=== PATIENT | female | born 1975 | race Caucasian/White ===

== ENCOUNTER 2017-01-08 16:35 | Emergency (ER) | payer MEDICAID ==
--- NOTE | 2017-01-08 16:55 | ER Document Report ---
ED Medical Screen (RME) - General Chief Complaint: Flank Pain Stated Complaint: ABDOMINAL PAIN Notes: 41-year-old female patient reports onset 11 AM of right flank and right upper quadrant abdominal pain. Hurts to move. Recently finished antibiotic for bacterial vaginosis. Brief exam shows very tender to palpate in the right upper quadrant, also just as tender to palpate the right flank muscles. Denies any recent turning, twisting, straining, new exercise class, etc. TRAVEL OUTSIDE OF THE [place] IN LAST 30 DAYS: No - Related Data Allergies/Adverse Reactions: amoxicillin [Amoxicillin] Allergy (Verified 01/08/17 16:47) Sulfa (Sulfonamide Antibiotics) Allergy (Verified 01/08/17 16:47) Past Medical History Pulmonary Medical History: Reports: Hx Bronchitis Renal/ Medical History: Denies: Hx Peritoneal Dialysis Past Surgical History: Reports: Hx Section - x 4, Hx Tubal Ligation Physical Exam - Vital signs Vitals: Temp Pulse Resp BP Pulse Ox 98.7 F 95 16 138/75 H 99 01/08/17 16:39 01/08/17 16:39 01/08/17 16:39 01/08/17 16:39 01/08/17 16:39 Course - Vital Signs Vital signs: Temp Pulse Resp BP Pulse Ox 98.7 F 95 16 138/75 H 99 01/08/17 16:39 01/08/17 16:39 01/08/17 16:39 01/08/17 16:39 01/08/17 16:39 - Laboratory Result Diagrams: 01/08/17 17:00 01/08/17 17:00 Laboratory results interpreted by me: 01/08/17 17:00 Hgb 11.9 L MCV 78 L MCH 25.6 L RDW 15.5 H
[2017-01-08 17:29] LABS: ABSOLUTE EOSINOPHILS # (AUTO) 0.3 10^3/uL (0.0-0.6); ABSOLUTE LYMPHOCYTES (AUTO) 2.8 10^3/uL (0.5-4.7); ABSOLUTE MONOCYTES (AUTO) 0.7 10^3/uL (0.1-1.4); ABSOLUTE NEUT (AUTO) 5.6 10^3/uL (1.7-8.2); BASOPHILS % (AUTO) 0.3 % (0-2); EOSINOPHILS % (AUTO) 2.7 % (0-6); HEMATOCRIT 36.5 % (36.0-47.0); HEMOGLOBIN 11.9 g/dL (12.0-15.5); HGB HCT DIFFERENCE -0.8; LYMPHOCYTES % (AUTO) 29.8 % (13-45); MEAN CORPUSCULAR HEMOGLOBIN 25.6 pg (27.0-33.4); MEAN CORPUSCULAR HGB CONC 32.6 g/dL (32.0-36.0); MEAN CORPUSCULAR VOLUME 78 fl (80-97); MONOCYTES % (AUTO) 7.2 % (3-13); RED BLOOD COUNT 4.66 10^6/uL (3.72-5.28); RED CELL DISTRIBUTION WIDTH 15.5 % (11.5-14.0); WHITE BLOOD COUNT 9.4 10^3/uL (4.0-10.5)
[2017-01-08 17:48] LABS: ALANINE AMINOTRANSFERASE 20 U/L (9-52); ALBUMIN 3.9 g/dL (3.5-5.0); ALKALINE PHOSPHATASE 65 U/L (38-126); ANION GAP 12 (5-19); ASPARTATE AMINO TRANSFERASE 20 U/L (14-36); BILIRUBIN,DIRECT 0.3 mg/dL (0.0-0.4); BILIRUBIN,TOTAL 0.6 mg/dL (0.2-1.3); BLOOD UREA NITROGEN 14 mg/dL (7-20); CALCIUM 9.1 mg/dL (8.4-10.2); CARBON DIOXIDE 26 mmol/L (22-30); CHLORIDE 103 mmol/L (98-107); GLUCOSE 95 mg/dL (75-110); POTASSIUM 4.3 mmol/L (3.6-5.0); SODIUM 140.9 mmol/L (137-145); TOTAL PROTEIN 7.2 g/dL (6.3-8.2)
[2017-01-08 18:07] LABS: APPEARANCE,URINE CLOUDY; BILIRUBIN,URINE NEGATIVE (NEGATIVE); GLUCOSE, URINE NEGATIVE (NEGATIVE); KETONES,URINE NEGATIVE (NEGATIVE); LEUKOCYTE ESTERASE,URINE NEGATIVE (NEGATIVE); NITRITE,URINE NEGATIVE (NEGATIVE); PROTEIN,URINE NEGATIVE (NEGATIVE); UROBILINOGEN,URINE NEGATIVE mg/dL (<2.0)
--- NOTE | 2017-01-08 19:37 | ER Document Report ---
ED GI/ - General Chief Complaint: Flank Pain Stated Complaint: ABDOMINAL PAIN Mode of Arrival: Ambulatory Information source: Patient Notes: Patient presents complaining of right sided upper abdominal pain and right flank pain that started yesterday. Patient states that pain has been constant but the severity has varied in intensity. Patient denies any fever, urinary symptoms, vaginal bleeding or discharge. Patient states pain is worse with movement, laughing and eating. Patient denies any vomiting or diarrhea but does report nausea. Last bowel movement was yesterday. Patient reports that she was recently treated for bacterial vaginosis last week and finished Flagyl today and denies any vaginal discharge at this time. Patient does report a decreased appetite. Patient reports that she has continued to have the right back and right upper quadrant abdominal pain since yesterday, but reports that she has developed lower pelvic pain and right lower quadrant pain this afternoon. TRAVEL OUTSIDE OF THE [place] IN LAST 30 DAYS: No - HPI Patient complains to provider of: Abdominal pain, Flank pain, Pelvic pain. No: Vaginal discharge, Vaginal pain, Vomiting Onset: Yesterday Timing/Duration: Persistent Quality of pain: Sharp Pain Level: 4 Location: Epigastric, RUQ, RLQ, Suprapubic Vaginal bleeding (Compared to normal period): None Associated symptoms: Loss of appetite, Nausea. denies: Constipation, Diarrhea, Dysuria, Fever, Urinary hesitancy, Urinary frequency, Urinary retention, Urinary urgency, Vaginal discharge, Vomiting Exacerbated by: Movement, Food Relieved by: Denies Similar symptoms previously: No Recently seen / treated by doctor: Yes - saw primary doctor last week for vaginal discharge - Related Data Allergies/Adverse Reactions: amoxicillin [Amoxicillin] Allergy (Verified 01/08/17 16:47) Sulfa (Sulfonamide Antibiotics) Allergy (Verified 01/08/17 16:47) Past Medical History - General Information source: Patient Last Menstrual Period: 12/19/16 - Social History Smoking Status: Never Smoker Frequency of alcohol use: None Drug Abuse: None Occupation: student Family History: Reviewed & Not Pertinent Patient has suicidal ideation: No Patient has homicidal ideation: No Pulmonary Medical History: Reports: Hx Bronchitis Renal/ Medical History: Reports: Hx Ovarian Cysts. Denies: Hx Peritoneal Dialysis Musculoskeltal Medical History: Reports Hx Fibromyalgia Past Surgical History: Reports: Hx Section - x 4, Hx Tubal Ligation Review of Systems - Review of Systems Constitutional: Recent illness - Recently treated for bacterial vaginosis. denies: Fever EENT: No symptoms reported Cardiovascular: No symptoms reported. denies: Chest pain Respiratory: No symptoms reported. denies: Cough, Short of breath Gastrointestinal: Abdominal pain, Nausea, Poor appetite. denies: Diarrhea, Vomiting, Constipation Genitourinary: No symptoms reported, Flank pain - Right. denies: Dysuria Female Genitourinary: No symptoms reported. denies: Vaginal discharge, Vaginal bleeding Musculoskeletal: Back pain - Right lower back Skin: No symptoms reported Hematologic/Lymphatic: No symptoms reported Neurological/Psychological: No symptoms reported Physical Exam - Vital signs Vitals: Temp Pulse Resp BP Pulse Ox 98.7 F 95 16 138/75 H 99 01/08/17 16:39 01/08/17 16:39 01/08/17 16:39 01/08/17 16:39 01/08/17 16:39 - General General appearance: Appears well, Alert In distress: None - HEENT Head: Normocephalic, Atraumatic Eyes: Normal Nasal: Normal Mouth/Lips: Normal Mucous membranes: Normal Neck: Normal, Supple. No: Lymphadenopathy - Respiratory Respiratory status: No respiratory distress Chest status: Nontender Breath sounds: Normal. No: Rales, Rhonchi, Stridor, Wheezing Chest palpation: Normal - Cardiovascular Rhythm: Regular Heart sounds: S1 appreciated, S2 appreciated Murmur: No - Abdominal Inspection: Obese Distension: No distension Bowel sounds: Normal Tenderness: Tender - Epigastric, right upper quadrant, right lower quadrant, suprapubic Organomegaly: No organomegaly - Genitourinary External exam: Normal Speculum exam: Cervix closed Vaginal bleeding: None Bimanuel exam: Cervical motion tender, Adnexal tenderness - right - Back Back: CVA tenderness - Right. No: Vertebra tenderness - Extremities General upper extremity: Normal inspection, Normal ROM General lower extremity: Normal inspection, Edema - 1+ bilateral lower extremities, Normal ROM - Neurological Neuro grossly intact: Yes Cognition: Normal Orientation: AAOx4 [place] Coma Scale Eye Opening: Spontaneous [place] Coma Scale Verbal: Oriented [place] Coma Scale Motor: Obeys Commands [place] Coma Scale Total: 15 - Psychological Associated symptoms: Normal affect, Normal mood - Skin Skin Temperature: Warm Skin Moisture: Dry Skin Color: Normal Course - Re-evaluation Re-evalutation: 01/08/17 20:[address] Fields regarding patient presentation, diagnostics and exam findings. Agrees with plan to order limited ultrasound at this time. 01/08/17 21:42 Patient reports modest improvement of upper abdominal pain after GI cocktail. Consulted with Dr. Fields regarding plan to treat for PID. Discussed patient's allergies, Recommends giving Rocephin as well as the doxycycline. Discuss results of diagnostic tests with patient. Discussed worsening signs or symptoms that patient should [facility]. Patient presents with abdominal pain without signs of peritonitis or other life-threatening or serious etiology. Patient appears stable for discharge and has been instructed to return immediately if the symptoms worsen in any way, or in 8-12 hours if not improved for reevaluation. The patient has been instructed to return if the symptoms worsen or change in any way. - Vital Signs Vital signs: Temp Pulse Resp BP Pulse Ox 98.7 F 85 17 124/68 99 01/08/17 16:39 01/08/17 22:09 01/08/17 22:09 01/08/17 22:09 01/08/17 22:09 - Laboratory Result Diagrams: 01/08/17 17:00 01/08/17 17:00 Laboratory results interpreted by me: 01/08/17 17:00 Hgb 11.9 L MCV 78 L MCH 25.6 L RDW 15.5 H 01/08/17 21:42 Labs- Entire Visit 01/08/17 01/08/17 01/08/17 17:00 17:00 17:00 WBC 9.4 RBC 4.66 Hgb 11.9 L Hct 36.5 MCV 78 L MCH 25.6 L MCHC 32.6 RDW 15.5 H Plt Count 344 Seg Neutrophils % 60.0 Lymphocytes % 29.8 Monocytes % 7.2 Eosinophils % 2.7 Basophils % 0.3 Absolute Neutrophils 5.6 Absolute Lymphocytes 2.8 Absolute Monocytes 0.7 Absolute Eosinophils 0.3 Absolute Basophils 0.0 Sodium 140.9 Potassium 4.3 Chloride 103 Carbon Dioxide 26 Anion Gap 12 BUN 14 Creatinine 0.70 Est GFR ( Amer) > 60 Est GFR (Non-Af Amer) > 60 Glucose 95 Calcium 9.1 Total Bilirubin 0.6 Direct Bilirubin 0.3 Indirect Bilirubin Not Reportable Neonat Total Bilirubin Not Reportable AST 20 ALT 20 Alkaline Phosphatase 65 Total Protein 7.2 Albumin 3.9 Lipase Serum HCG, Qual NEGATIVE Urine Color Urine Appearance Urine pH Ur Specific [place] Urine Protein Urine Glucose (UA) Urine Ketones Urine Blood Urine Nitrite Urine Bilirubin Urine Urobilinogen Ur Leukocyte Esterase Urine WBC (Auto) Urine RBC (Auto) Squamous Epi Cells Auto Urine Mucus (Auto) Urine Ascorbic Acid Trichomonas (Wet Prep) Vaginal WBC Vaginal Yeast Chlamydia DNA (PCR) N.gonorrhoeae DNA (PCR) 01/08/17 01/08/17 01/08/17 17:00 19:00 19:48 WBC RBC Hgb Hct MCV MCH MCHC RDW Plt Count Seg Neutrophils % Lymphocytes % Monocytes % Eosinophils % Basophils % Absolute Neutrophils Absolute Lymphocytes Absolute Monocytes Absolute Eosinophils Absolute Basophils Sodium Potassium Chloride Carbon Dioxide Anion Gap BUN Creatinine Est GFR ( Amer) Est GFR (Non-Af Amer) Glucose Calcium Total Bilirubin Direct Bilirubin Indirect Bilirubin Neonat Total Bilirubin AST ALT Alkaline Phosphatase Total Protein Albumin Lipase 66.8 Serum HCG, Qual Urine Color YELLOW Urine Appearance CLOUDY Urine pH 7.0 Ur Specific [place] 1.020 Urine Protein NEGATIVE Urine Glucose (UA) NEGATIVE Urine Ketones NEGATIVE Urine Blood NEGATIVE Urine Nitrite NEGATIVE Urine Bilirubin NEGATIVE Urine Urobilinogen NEGATIVE Ur Leukocyte Esterase NEGATIVE Urine WBC (Auto) 0 Urine RBC (Auto) 1 Squamous Epi Cells Auto 5 Urine Mucus (Auto) RARE Urine Ascorbic Acid NEGATIVE Trichomonas (Wet Prep) Vaginal WBC Vaginal Yeast Chlamydia DNA (PCR) NOT DETECTED N.gonorrhoeae DNA (PCR) NOT DETECTED 01/08/17 19:48 WBC RBC Hgb Hct MCV MCH MCHC RDW Plt Count Seg Neutrophils % Lymphocytes % Monocytes % Eosinophils % Basophils % Absolute Neutrophils Absolute Lymphocytes Absolute Monocytes Absolute Eosinophils Absolute Basophils Sodium Potassium Chloride Carbon Dioxide Anion Gap BUN Creatinine Est GFR ( Amer) Est GFR (Non-Af Amer) Glucose Calcium Total Bilirubin Direct Bilirubin Indirect Bilirubin Neonat Total Bilirubin AST ALT Alkaline Phosphatase Total Protein Albumin Lipase Serum HCG, Qual Urine Color Urine Appearance Urine pH Ur Specific [place] Urine Protein Urine Glucose (UA) Urine Ketones Urine Blood Urine Nitrite Urine Bilirubin Urine Urobilinogen Ur Leukocyte Esterase Urine WBC (Auto) Urine RBC (Auto) Squamous Epi Cells Auto Urine Mucus (Auto) Urine Ascorbic Acid Trichomonas (Wet Prep) NO TRICHOMONAS SEEN Vaginal WBC RARE WBCS SEEN Vaginal Yeast NO YEAST SEEN Chlamydia DNA (PCR) N.gonorrhoeae DNA (PCR) - Diagnostic Test Radiology reviewed: Reports reviewed Discharge - Discharge Clinical Impression: PID (acute pelvic inflammatory disease), Pelvic pain, Upper abdominal pain, Right flank pain, Fatty liver Condition: Stable Disposition: HOME, SELF-CARE Instructions: Antinausea Medication ([facility]), Abdominal Pain ([facility]), Observation for Appendicitis ([facility]), Low-Fat Diet ([facility]), Pelvic Inflammatory Disease ([facility]), Rocephin ([facility]), Doxycycline ([facility]) Additional Instructions: Return immediately for any new or worsening symptoms Followup with your primary care provider, call tomorrow to make a followup appointment Return in 12 hours for repeat examination if you're still having lower abdominal tenderness. Return immediately for any new or worsening symptoms, fever, vomiting, or any concerning symptoms. Follow-up with your primary doctor or a ophthalmic asst for further evaluation of fatty liver found on ultrasound Prescriptions: Doxycycline Hyclate 100 mg PO BID #28 capsule Omeprazole Magnesium [Prilosec Otc] 20 mg PO DAILY #15 tablet. Ondansetron HCl [Zofran 4 mg Tablet] 1 - 2 tab PO Q6 PRN #15 tablet PRN Reason: Sucralfate [Carafate 1 gm Tablet] 1 gm PO ACHS #40 tablet Referrals: CHINO BENNETT PA-C [Primary Care Provider] - Follow up tomorrow NISSA GAITAN MD [ACTIVE STAFF] - Follow up as needed DIAZ BHATIA MD [ACTIVE STAFF] - Follow up as needed
[2017-01-08 19:38] LABS: ADD ON TESTING BLD IN LAB ACKNOWLEDGE
[2017-01-08 19:49] LABS: LIPASE 66.8 U/L (23-300)
[2017-01-08] MEDS ORDERED: ACETAMINOPHEN 325 MG TABLET PO ONE (20:47)
[2017-01-08] MEDS ORDERED: LIDOCAINE 2% VISCOUS SOLN 20 ML UDCUP PO ONE (21:16)
[2017-01-08] MEDS ORDERED: MAG HYDROX/AL HYDROX/SIMETH SUSP 30 ML UDCUP PO ONE (21:16)
[2017-01-08 21:22] LABS: CHLAM PCR NOT DETECTED (NOT DETECT)
[2017-01-08] MEDS ORDERED: CEFTRIAXONE INJ 250 MG VIAL IM ONE (21:39)
[2017-01-08] MEDS ORDERED: DOXYCYCLINE HYCLATE 100 MG TABLET PO ONE (21:39)
[2017-01-08] MEDS ORDERED: LIDOCAINE 1% INJ-PF (10 MG/ML) 30 ML SDV INJ ONE (21:39)
[2017-01-08 22:09] VITALS: BP 124/68
== END 2017-01-08 22:30 | disposition home or self-care (01) ==
LOC: ER 16:35
DX: N73.9 Female pelvic inflammatory disease, unspecified (principal); R10.2 Pelvic and perineal pain; R10.10 Upper abdominal pain, unspecified; K76.0 Fatty (change of) liver, not elsewhere classified; E66.9 Obesity, unspecified; R11.0 Nausea; Z98.51 Tubal ligation status; Z88.2 Allergy status to sulfonamides; Z88.0 Allergy status to penicillin
CPT/HCPCS: 99284; 96372; 36415; 87210; 83690; 84703; 85025; 80053; 81001; 87491; 87591; 76705; J3490 ×5; J0696